=== PATIENT | female | born 1975 | race Two or more races ===

== ENCOUNTER 2020-12-24 10:45 | Inpatient (IN) | payer OTHER ==
[~2020-12-24] VITALS: Ht 162.6 cm; Wt 68.0 kg
== END 2021-01-02 14:15 | disposition home or self-care (01) | DRG 743 ==
LOC: O/R 12-30 06:20 → SURG 12-30 06:20 → SURH 12-30 08:00 → SURG 12-30 17:58
PROVIDERS: Surgery; ADMIT Obstetrics & Gynecology Gynecology; ATTEND Obstetrics & Gynecology Gynecology
PROC: 0TNB4ZZ Release Bladder, Percutaneous Endoscopic Approach (ICD-10-PCS; 2020-12-30)
PROC: 0DNW4ZZ Release Peritoneum, Percutaneous Endoscopic Approach (ICD-10-PCS; 2020-12-30)
PROC: 0DBP4ZZ Excision of Rectum, Percutaneous Endoscopic Approach (ICD-10-PCS; 2020-12-30)
PROC: 0DBN4ZZ Excision of Sigmoid Colon, Percutaneous Endoscopic Approach (ICD-10-PCS; 2020-12-30)
PROC: 0DJD8ZZ Inspection of Lower Intestinal Tract, Via Natural or Artificial Opening Endoscopic (ICD-10-PCS; 2020-12-30)
PROC: 0UT94ZZ Resection of Uterus, Percutaneous Endoscopic Approach (ICD-10-PCS; principal; 2020-12-30 10:15)
PROC: 0UT74ZZ Resection of Bilateral Fallopian Tubes, Percutaneous Endoscopic Approach (ICD-10-PCS; 2020-12-30 10:15)
DX: N80.0 Endometriosis of uterus (principal); N80.5 Endometriosis of intestine; N72 Inflammatory disease of cervix uteri; D25.1 Intramural leiomyoma of uterus; N83.8 Other noninflammatory disorders of ovary, fallopian tube and broad ligament; N92.0 Excessive and frequent menstruation with regular cycle